=== PATIENT | male | born 1990 | race Caucasian/White ===

== ENCOUNTER 2017-03-20 04:54 | Emergency (ER) | payer OTHER ==
[~2017-03-20] VITALS: Ht 180.3 cm; Wt 74.8 kg
[2017-03-20] MEDS ORDERED: PROTONIX40 MG PO (07:34)
== END 2017-03-20 08:05 | disposition home or self-care (01) ==
LOC: ED 04:54
DX: K30 Functional dyspepsia (principal); Z87.891 Personal history of nicotine dependence
CPT/HCPCS: 74177; 80053; 81001; 83690; 85025; 96361; 96374; 96375; 99284; J1170; J2405; J7030; Q9967